=== PATIENT | female | born 1975 | race Caucasian/White ===

== ENCOUNTER 2024-04-19 13:48 | Emergency (ER) | payer OTHER ==
[~2024-04-19] VITALS: Ht 162.6 cm; Wt 104.3 kg
[2024-04-19 15:09] LABS: Source, Urine Clean Catch
[2024-04-19 15:10] LABS: BASOPHILS ABSOLUTE AUTO 0.06 K/mm3 (0.00-0.23); BASOPHILS PERCENT AUTO 0 % (0-2); EOSINOPHILS ABSOLUTE AUTO 0.16 K/mm3 (0.00-0.68); EOSINOPHILS PERCENT AUTO 1 % (0-6); Hematocrit 44.3 % (33.0-51.0); Hemoglobin 14.3 g/dL (11.5-16.0); IMMATURE GRAN ABSOLUTE AUTO 0.04 K/mm3 (0.00-0.10); IMMATURE GRAN PERCENT AUTO 0 % (0-1); LYMPHOCYTES ABSOLUTE AUTO 1.61 K/mm3 (0.84-5.20); LYMPHOCYTES PERCENT AUTO 12 % (21-46); MONOCYTES ABSOLUTE AUTO 1.27 K/mm3 (0.16-1.47); MONOCYTES PERCENT AUTO 9 % (4-13); Mean Corpuscular HGB 28.8 pg (26.0-34.0); Mean Corpuscular HGB Conc 32.3 g/dL (31.5-36.5); Mean Corpuscular Volume 89 fL (80-100); NEUTROPHILS ABSOLUTE AUTO 10.87 K/mm3 (1.96-9.15); NEUTROPHILS PERCENT AUTO 78 % (41-73); Platelet Count 304 K/mm3 (150-400); RDW Coefficient Variation 13.2 % (11.7-14.2); RDW Standard Deviation 42.8 fL (35.1-46.3); Red Blood Cell Count 4.96 M/mm3 (3.80-5.20); White Blood Cell Count 14.01 K/mm3 (4.00-11.30)
[2024-04-19 15:14] LABS: Appearance, Urine Hazy (Clear); Blood, Urine 4+ (Neg); Color, Urine Amber (P-Yellow); Glucose Qualitative, Urine Neg (Neg); Ketones, Urine 3+ (Neg); Leukocyte Esterase, Urine 1+ (Neg); Nitrite, Urine Neg (Neg); Protein, Urine 3+ (Neg); Specific Gravity, Urine 1.025 (1.003-1.022); Urobilinogen, Urine 1+ (Normal)
[2024-04-19 15:25] LABS: Albumin, Blood 3.5 g/dL (3.4-5.0); Albumin/Globulin Ratio 0.7 (0.8-1.8); Bilirubin, Total 0.7 mg/dL (0.1-1.0); Bun/Creatinine Ratio 18.5 (12.0-20.0); Creatinine, Blood 0.86 mg/dL (0.40-1.00); Globulin, Blood 4.7 g/dL (2.2-4.0); Potassium, Blood 4.3 mmol/L (3.5-5.5); Total Protein, Blood 8.2 g/dL (6.4-8.2)
[2024-04-19 15:34] LABS: Bilirubin, Urine 1+ (Neg)
[2024-04-19 15:40] LABS: Amorphous Light (0-Heavy); Bacteria Many /hpf; Mucus Heavy (0-Heavy); Red Blood Cells, Urine 0-2 /hpf (0-2); Squamous Epithelial Cells Rare /hpf (Few)
[2024-04-19] MEDS ORDERED: Ketorolac Tromethamine 15mg Vial IV ONE (16:10)
[2024-04-19] MEDS ORDERED: NS 1,000 ML IV SCH (16:10)
[2024-04-19] MEDS ORDERED: FentaNYL Citrate 50 MCG/ML 2 ML Injection IV ONE (18:20)
[2024-04-19] MEDS ORDERED: Phenazopyridine HCl 100 MG Tab PO ONE (18:55)
[2024-04-19] MEDS ORDERED: Nitrofurantoin/Nitrofuran Mac 100 MG Cap PO ONE (18:55)
[2024-04-19] MEDS ORDERED: PHENA200 PO (18:58)
[2024-04-19] MEDS ORDERED: NITR100CA PO (18:58)
== END 2024-04-19 19:12 | disposition home or self-care (01) ==
LOC: ER 13:48
PROVIDERS: Physician Assistant
DX: N39.0 Urinary tract infection, site not specified (principal); Z88.8 Allergy status to other drugs, medicaments and biological substances; Z59.89 Other problems related to housing and economic circumstances
CPT/HCPCS: 74177; 76830; 76856; 80053; 81001; 81025; 83605; 85025; 87086; 93005; 93010; 96361; 96374-59; 96375; 99284-25; A9270; J1885; J3010; J7030; Q9967

== ENCOUNTER → 2024-04-26 | Outpatient (CLI) | payer OTHER ==
[~2024-04-26] MED LIST: NITR100CA PO; PHENA200 PO
== END | disposition home or self-care (01) ==
LOC: LAB SHORT 15:25 → LAB 15:25
DX: N39.0 Urinary tract infection, site not specified (principal)
CPT/HCPCS: 87086